=== PATIENT | male | born 1955 | race Caucasian/White ===

== ENCOUNTER 2018-06-09 08:20 | Day surgery (SDC) | payer OTHER ==
[~2018-06-09 08:20] MED LIST: LIDOCAINE 2% (SDV) 5 ML INJ
[2018-06-09] MEDS ORDERED: PROPOFOL 40 ML (10:01)
== END 2018-06-09 11:25 | disposition home or self-care (01) ==
LOC: GIL 08:20
DX: Z12.11 Encounter for screening for malignant neoplasm of colon (principal); D12.5 Benign neoplasm of sigmoid colon; K57.90 Diverticulosis of intestine, part unspecified, without perforation or abscess without bleeding; K64.8 Other hemorrhoids; I10 Essential (primary) hypertension
CPT/HCPCS: 45380; 88305